=== PATIENT | male | born 1970 | race Caucasian/White ===

== ENCOUNTER → 2016-08-15 | Outpatient (CLI) | payer OTHER ==
[~2016-08-15] MED LIST: ALUMSUS2; DICL-201 PO; DULO60CA44 PO; ONDA4TAB46 PO; TOPI50TA16 PO; TRAM-10 PO
--- NOTE | 2016-08-15 09:02 | DIAGNOSTIC IMAGING REPORT ---
NUCLEAR MEDICINE HEPATOBILIARY SCAN CLINICAL HISTORY: Abdominal pain COMPARISON STUDY: No previous studies for comparison. FINDINGS: The patient was injected with 5.5 mCi of technetium 99m Choletec. Anterior imaging was performed. Hepatic excretion appeared unremarkable. The gallbladder was first visualized on the 15 minute image. There was normal passage of activity into small bowel. IMPRESSION: Normal study. No evidence of cystic duct obstruction. Electronically signed by: Gera Augustine M.D. 08/15/2016 9:00 AM Dictated Date/Time: 08/15/2016 8:59 AM
== END | disposition home or self-care (01) ==
LOC: C.NUCL 07:26
PROVIDERS: ATTEND Internal Medicine
DX: G89.29 Other chronic pain (principal); J30.9 Allergic rhinitis, unspecified; K21.9 Gastro-esophageal reflux disease without esophagitis; M54.16 Radiculopathy, lumbar region; M54.5 Low back pain; R25.1 Tremor, unspecified

== ENCOUNTER → 2016-11-06 | Outpatient (CLI) | payer OTHER | LOC: C.PAIN 14:12 | PROVIDERS: ATTEND Anesthesiology ==

== ENCOUNTER 2017-04-01 11:05 | Day surgery (SDC) | payer OTHER ==
--- NOTE | 2017-02-19 14:41 | History and Physical ---
History & Physical Date Feb 19, 2017. Chief Complaint Intractable lumbar radicular pain secondary to lumbar postlaminectomy syndrome History of Present Illness The patient is a 46 year old male that has a significant history of lumbar spine surgery 2, most recently in 2000 with an L5-S1 laminectomy and fusion. Surgery failed to provide any pain relief. After trying multiple injections without any sustained pain relief, he did have a spinal cord stimulator lead and battery implanted in 2000. The spinal cord stimulator has been revised twice now. Spinal cord stimulator has provided significant pain relief for the patient. The pain is located along the bilateral lower extremities, left greater than right and S1 distribution to the level of the foot. Pain ranges from 4-10/10. He describes a burning, numbness, standing, spasming, shooting pain. Pain is aggravated with lifting and sitting. He denies any bowel/ bladder incontinence, saddle anesthesia, foot drop, falls. He does admit to occasional right leg weakness and will require the use of a single-point cane. Case discussed with Dr. Gann Past Medical/Surgical History Medical Problems: (1) GERD (gastroesophageal reflux disease) (2) Seasonal allergies (3) spinal cord stimulator implantation Surgical Problems: (1) History of lumbar laminectomy (2) History of right knee surgery (3) Hx of tonsillectomy Allergies Coded Allergies: Penicillins (Unverified Allergy, Unknown, HIVES, 11/06/16) Prochlorperazine (Unverified Allergy, Unknown, HIVES, 11/06/16) Home Medications Scheduled Diclofenac (Voltaren), 75 MG PO BID Duloxetine Hcl (Cymbalta), 1 CAP PO DAILY Topiramate (Topamax), 50 MG PO DAILY Scheduled PRN Ondansetron Hcl (Zofran), 4 MG PO for Nausea Tramadol (Ultram), 100 MG PO TID PRN for Pain Miscellaneous Medications Aluminum/Magnesium/Simeth (Maalox Max Susp) Physical Examination Skin: warm/dry, no rash Eyes: normal inspection, EOMI, sclerae normal ENT: normal ENT inspection, pharynx normal Head: normocephalic, atraumatic Neck: supple, no adenopathy, trachea midline Respiratory/Chest: lungs clear, normal breath sounds, no respiratory distress Cardiovascular: regular rate, rhythm, no edema, no murmur Abdomen / GI: normal bowel sounds, non tender, + pertinent finding (stimulator batter is located in the RLQ of abdomen. Not tender. No mobility. ) Back: + pertinent finding (Loss of lumbar lordosis. There is a well healed surgical incision of the lumbar midline and at the thoraco lumbar junction. There is moderate tenderness at the left L5-S1 level. Minimal spasm of the lower paravertebral musculature. No midline or SI joint tenderness. There is decreased ROM in all planes. ) Extremities: normal inspection, normal range of motion, + pertinent finding (+ SLR bilaterally, right greater then left. 5/5 strength of bilateral lower extremtiies. ) Neurologic/Psych: no motor/sensory deficits, alert, oriented x 3, + pertinent finding (0/4 achilles and patellar reflexes bilaterally.) Diagnosis Intractable lumbar radicular pain secondary to lumbar post-laminectomy syndrome Plan of Treatment Mr. Lindsay does have intractable lumbar radicular pain secondary to lumbar- post laminectomy syndrome. His pain has been well controlled with the use of the spinal cord stimulator, Tramadol, and meditation. The spinal cord stimulator has been more difficult to charge, taking longer to change, and not providing adequate strength. The battery has been found to have reached end-of- life. It is recommended that the patient receive a battery replacement. Risks and benefits were reviewed with the patient. Procedure was explained to the patient and he is understanding. Patient would like to proceed with the procedure.
[2017-03-13 08:23] VITALS: BMI 31.0
--- NOTE | 2017-03-20 13:21 | History and Physical ---
History & Physical Date of Service Mar 20, 2017. History & Physical Plan of care discussed with Dr. Gann CHIEF COMPLAINT: Intractable lumbar radicular pain secondary to lumbar postlaminectomy syndrome HISTORY OF PRESENT ILLNESS: The patient is a 46 year old male that has a significant history of lumbar spine surgery 2, most recently in 2000 with an L5 -S1 laminectomy and fusion. Surgery failed to provide any pain relief. After trying multiple injections without any sustained pain relief, he did have a spinal cord stimulator lead and battery implanted in 2000. The spinal cord stimulator has been revised twice now. Spinal cord stimulator has provided significant pain relief for the patient. The pain is located along the bilateral lower extremities, left greater than right and S1 distribution to the level of the foot. Pain ranges from 4-10/10. He describes a burning, numbness , standing, spasming, shooting pain. Pain is aggravated with lifting and sitting. He denies any bowel/bladder incontinence, saddle anesthesia, foot drop , falls. He does admit to occasional right leg weakness and will require the use of a single-point cane. Case discussed with Dr. Gann PAST MEDICAL HISTORY: 1. Gastroesophageal reflux disease 2. Seasonal allergies PAST SURGICAL HISTORY: 1. Spinal cord stimulator implantation 2. L5-S1 laminectomy and fusion 3. Right knee surgery 4. 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 ALLERGIES: Penicillin, prochlorperazine MEDICATIONS: 1. Diclofenac 75 mg twice daily 2. Cymbalta 60 mg daily 3. Zofran 4 mg as needed for nausea and vomiting 4. Topamax 50 mg daily 5. Tramadol 100 mg 3 times daily REVIEW OF SYSTEMS: Denies any constitutional, cardiac, pulmonary, neurological, GI, , extremity, endocrine, neuro, ENT, dermatological, or musculoskeletal complaints other than stated in HPI PHYSICAL EXAMINATION: VITAL SIGNS: Per admission GENERAL: Well nourished; well appearing; in no acute distress. Cognition intact and speech is appropriate. Skin: warm/dry, no rash Eyes: normal inspection, EOMI, sclerae normal ENT: normal ENT inspection, pharynx normal Head: normocephalic, atraumatic Neck: supple, no adenopathy, trachea midline Respiratory/Chest: lungs clear, normal breath sounds, no respiratory distress Cardiovascular: regular rate, rhythm, no edema, no murmur Abdomen / GI: normal bowel sounds, non tender, + pertinent finding (stimulator batter is located in the RLQ of abdomen. Not tender. No mobility. ) Back: + pertinent finding (Loss of lumbar lordosis. There is a well healed surgical incision of the lumbar midline and at the thoraco lumbar junction. There is moderate tenderness at the left L5-S1 level. Minimal spasm of the lower paravertebral musculature. No midline or SI joint tenderness. There is decreased ROM in all planes. ) Extremities: normal inspection, normal range of motion, + pertinent finding (+ SLR bilaterally, right greater then left. 5/5 strength of bilateral lower extremities. ) Neurologic/Psych: no motor/sensory deficits, alert, oriented x 3, + pertinent finding (0/4 achilles and patellar reflexes bilaterally.) ASSESSMENT: Intractable lumbar radicular pain secondary to lumbar post- laminectomy syndrome TREATMENT: Mr. Lindsay has intractable lumbar radicular pain secondary to lumbar -post laminectomy syndrome. His pain has been well controlled with the use of the spinal cord stimulator, Tramadol, and meditation. The spinal cord stimulator has been more difficult to charge, taking longer to change, and not providing adequate strength. The battery has been found to have reached end-of- life. It is recommended that the patient receive a battery replacement. Risks and benefits were reviewed with the patient. Procedure was explained to the patient and he understands. Patient would like to proceed with the procedure.
[~2017-04-01] VITALS: Ht 172.7 cm; Wt 94.1 kg
[~2017-04-01 11:05] MED LIST changes: +CLINDAMYCIN IV 900 MG in DEXTROSE 5% 50ML IV SCH; +LACTATED RINGER'S 1000ML 1,000 ML IV SCH
[2017-04-01 11:27] VITALS: BP 125/76; PULSE 78; TEMP 36.8; O2SAT 99; Ht 172.7 cm; Wt 94.1 kg
[2017-04-01] MEDS ORDERED: LIDO 2%/EPINEPHRINE 1:100000 20 ML VIAL INFIL ONE (12:02)
[2017-04-01] MEDS ORDERED: BACITRACIN 50000 UNIT VIAL ONE (12:03)
[2017-04-01] MEDS ORDERED: BUPIVACAINE 0.25% 30 ML VIAL ONE (12:04)
[2017-04-01] MEDS ORDERED: EpINEphrine INJ 1MG/ML AMP 1 MG/ML AMP ONE (12:04)
[2017-04-01] MEDS ORDERED: FENTANYL CITRATE INJ 50 MCG/1 ML 2 ML VIAL ONE ×2 (12:58→14:24)
[2017-04-01] MEDS ORDERED: PROPOFOL IV EMULSION 10 MG/ML 20 ML VIAL IV ONE ×2 (12:58→13:49)
[2017-04-01] MEDS ORDERED: MIDAZOLAM HCL 1 MG/ML 2ML VIAL ONE ×2 (12:58→13:19)
--- NOTE | 2017-04-01 13:05 | History & Physical Bridge Note ---
H&P Re-Evaluation Bridge Note: I have examined the patient, reviewed the History & Physical and in the interval since the performance of the History & Physical I have noted the following changes of clinical significance: No changes noted
[2017-04-01] MEDS ORDERED: KETAMINE HCL INJ 50 MG/ML 10 ML VIAL ONE (13:21)
[2017-04-01] MEDS ORDERED: POVIDONE-IODINE OP SOLN 30 ML BTL ONE (13:43)
--- NOTE | 2017-04-01 14:08 | [facility] Post Operative Brief Note ---
Immediate Operative Summary Operative Date Apr 01, 2017. Pre-Operative Diagnosis End of life spinal cord stimulator battery Post-Operative Diagnosis End of life spinal cord stimulator battery Procedure(s) Performed Replacement of Spinal Cord Stimulatory Battery Surgeon Dr. Birdie Gann Vocational Rehab Consultant Surgeon(s) None Estimated Blood Loss 1 mL Findings Consistent with Post-Op Diagnosis Specimens Permanent specimens A: Explanted spinal cord stimulator battery Drains None Anesthesia Type MAC Complication(s) none Disposition Accompanied Pt To Recover: no Disposition: Recovery Room / PACU
--- NOTE | 2017-04-01 14:21 | Operative Note-Pain Management ---
Pain Clinic Operative Note PREOPERATIVE DIAGNOSIS: End of life Spinal Cord Stimulator Generator POSTOPERATIVE DIAGNOSIS: Same. PROCEDURE PERFORMED: Spinal cord stimulator generator replacement, reprogramming and interrogation of the spinal cord stimulator. SURGEON: Dr. Birdie Gann. ANESTHESIA: IV sedation and local. IV FLUIDS: Per anesthetic record ESTIMATED BLOOD LOSS: 1ml URINE OUTPUT: Not measured. The patient had a spinal cord stimulator generator that was end of life required replacement The patient was counseled extensively on the risks, benefits of the procedure including infection, headache, bleeding, damage to surrounding structures and wishes to proceed as above. The consent was witnessed and a time-out was performed. An IV was started in the preoperative area and the patient was brought to the Operating Room and placed in the prone position. The patient was given Clindamycin 900mg IV prior to the start of the procedure. The patients thoracolumbar spine was prepped with Duraprep followed by Betadine solution and draped in a sterile fashion with sterile drapes and ioban. Next, 0.25% bupivacaine with 1:200K epinephrine was utilized to anesthetize the skin and subcutaneous tissue for a pocket incision. Using a 10 blade scalpel, electrocautery and Metzenbaum scissors the old spinal cord stimulator battery was dissected and disconnected. A new rechargeable spinal cord stimulator battery was connected per protocol. The new battery was interrogated and the lead was functional. A plug was placed in the second lead port. Hemostasis was excellent and the pocket incision was irrigated with three bulb syringes with auqeous iodofor infused saline. The battery was then placed inside the pocket with retention loops behind the generator battery in the pocket incision. A single 0 prolene suture connected the battery to the underlying tissues. The skin and subcutaneous tissues were then closed with running 0 stratafix sutures followed by running subcuticular 3-0 V-loc sutures. The incision and skin was cleansed and dried then Prineo dressing was placed over the incision site followed by dermabond. Next, after the dermabond had dried, 4 x 4 gauze and Tegaderms were placed. The patient was then emerged from IV sedation and the patient was placed back in the supine position with an abdominal binder in place. The patient was taken to the recovery room in stable condition without complications noted. The spinal cord stimulator was reprogrammed in recovery without complication. The patient was sent home with standard discharge instructions and will follow up in the pain clinic in 14 days. I attest to the content of the Intraoperative Record and any orders documented therein. Any exceptions are noted below.
--- NOTE | 2017-04-01 14:26 | Discharge Instructions ---
Discharge Instructions Date of Service Apr 01, 2017. Visit Reason for Visit: End-Of-Life Spinal Cord Stimulator Battery, Chroni Discharge Discharge Diagnosis / Problem: End of life SCS battery Discharge Goals Goal(s): Decrease discomfort, Improve function Activity Recommendations Activity Limitations: per Instructions/Follow-up section Lifting Limitations: no more than 10 pounds (for 4 weeks) Exercise/Sports Limitations: until after follow-up appointment Shower/Bathe: may shower/bathe in 3 days, keep incision dry Anesthesia . Post Anesthesia Instructions: If you have had General Anesthesia or IV Sedation: * Do not drive today. * Resume driving when surgeon permits. * Do not make important decisions or sign legal documents today. * Call surgeon for: 1. Temperature elevations greater than 101 degrees F. 2. Uncontrollable pain. 3. Excessive bleeding. 4. Persistent nausea and vomiting. 5. Medication intolerance (nausea, vomiting or rash). * For nausea and vomiting use only clear liquids such as: tea, soda, bouillon until nausea subsides, then gradually increase diet as tolerated. * If you have any concerns or questions, call your surgeon's office. If physician is unavailable and it is an emergency, call 911 or go to the nearest emergency room. . Instructions / Follow-Up Instructions / Follow-Up Please followup with the [facility]. The guards will arrange your appointment. Please keep the dressing dry and do not remove the purple dressing. Please perform daily dressing changes and look for redness/swelling/drainage Please wear the abdominal binder while awake for 4 weeks to reduce swelling and allow healing. Diet Recommendations Recommended Home Diet: no limitations, resume previous diet Procedures Procedures Performed: Replacement of Spinal Cord Stimulatory Battery Pending Studies Studies pending at discharge: no Medical Emergencies . Who to Call and When: Medical Emergencies: If at any time you feel your situation is an emergency, please call 911 immediately. . Non-Emergent Contact Non-Emergency issues call your: Primary Care Provider, Specialist (Pain physician) Call Non-Emergent contact if: you have a fever, your pain is not controlled, your pain is unusual for you, your pain is concerning you, wound has increased drainage, wound has increased redness, wound has increased pain, you have any medication questions . Past History Medical & Surgical History: (1) S/P insertion of spinal cord stimulator (2) Battery end of life of spinal cord stimulator (3) Seasonal allergies (4) GERD (gastroesophageal reflux disease) (5) spinal cord stimulator implantation (6) Hx of tonsillectomy (7) History of right knee surgery (8) History of lumbar laminectomy . "Provider Documentation" section prepared by Birdie Gann. .
[2017-04-01] MEDS ORDERED: LABETALOL HCL IV 5 MG/ML 20ML IV PRN (14:30)
[2017-04-01] MEDS ORDERED: NALOXONE HCL 0.4 MG/1 ML VIAL/CARP IV PRN (14:30)
[2017-04-01] MEDS ORDERED: HYDROCODONE/ACETAMOPHEN 5/325MG TAB PO PRN (14:30)
[2017-04-01] MEDS ORDERED: ONDANSETRON INJ 2 MG/ML 2 ML VIAL IV PRN (14:30)
[2017-04-01] MEDS ORDERED: EpHEDrine SULFATE INJ 50 MG/ML AMP IV PRN (14:30)
[2017-04-01] MEDS ORDERED: FENTANYL CITRATE INJ 50 MCG/1 ML 2 ML VIAL IV PRN (14:30)
[2017-04-01] MEDS ORDERED: ATROPINE SULFATE 0.1 MG/ML 5ML SYR IV PRN (14:30)
[2017-04-01] MEDS ORDERED: FLUMAZENIL 0.1 MG/1 ML 10 ML VIAL IV PRN (14:30)
--- NOTE | 2017-04-01 14:41 | Anesthesiology Progress Note ---
Anesthesia Post Op Note Date & Time Apr 01, 2017 at 14:40 Vital Signs Pain Intensity: 7.0 Vital Signs Past 12 Hours Date Time Temp Pulse Resp B/P (MAP) Pulse Ox O2 Delivery O2 Flow Rate FiO2 04/01/17 14:35 65 23 116/80 97 Room Air 04/01/17 14:25 65 18 127/78 100 10 04/01/17 14:16 36.2 63 16 106/76 100 10 04/01/17 11:27 36.8 78 18 125/76 (92) 99 Room Air Notes Mental Status: alert / awake / arousable, participated in evaluation Pt Amnestic to Procedure: Yes Nausea / Vomiting: adequately controlled Pain: adequately controlled Airway Patency, RR, SpO2: stable & adequate BP & HR: stable & adequate Hydration State: stable & adequate Anesthetic Complications: no major complications apparent
[2017-04-01 15:02] VITALS: BP 118/74; PULSE 65; TEMP 36.8; O2SAT 97
[2017-04-01 15:32] VITALS: BP 117/72; PULSE 60; TEMP 36.7; O2SAT 98
== END 2017-04-01 15:40 | disposition home or self-care (01) ==
LOC: C.ACU 11:05
PROVIDERS: ATTEND Anesthesiology
DX: M96.1 Postlaminectomy syndrome, not elsewhere classified (principal); M54.16 Radiculopathy, lumbar region; K21.9 Gastro-esophageal reflux disease without esophagitis